=== PATIENT | female | born 1985 | race African-American/Black ===

== ENCOUNTER 2018-02-08 17:56 | Emergency (ER) | payer OTHER ==
[2018-02-08 18:06] VITALS: BP 129/88; PULSE 92; TEMP 98.2; BMI 22.8
--- NOTE | 2018-02-08 18:37 | PDOC ---
History of Present Illness - General Chief Complaint: Pain, Acute Stated Complaint: CHEST PAIN Time Seen by Provider: 02/08/18 18:08 History Source: Patient Exam Limitations: No Limitations Past History - Travel Traveled outside of the country in the last 30 days: No - Past Medical History Allergies/Adverse Reactions: Allergies Allergy/AdvReac Type Severity Reaction Status Date / Time No Known Allergies Allergy Verified 02/08/18 18:01 Home Medications: Ambulatory Orders Quetiapine Fumarate [Seroquel -] 50 mg PO HS 02/08/18 COPD: No Other medical history: SICKLE CELL - Immunization History Immunization Up to Date: Yes - Suicide/Smoking/Psychosocial Hx Smoking History: Current every day smoker Number of Cigarettes Smoked Daily: 6 Information on smoking cessation initiated: No Hx Alcohol Use: No Drug/Substance Use Hx: No *Physical Exam - Vital Signs Last Vital Signs Temp Pulse Resp BP Pulse Ox 98.2 F 92 H 18 129/88 100 02/08/18 18:02 02/08/18 18:02 02/08/18 18:02 02/08/18 18:02 02/08/18 18:02 - Physical Exam General Appearance: No: Apparent Distress Respiratory/Chest: positive: Chest Tender (+TTP along R chest wall), Lungs Clear , Normal Breath Sounds. negative: Respiratory Distress Cardiovascular: positive: Regular Rhythm, Regular Rate, S1, S2. negative: Murmur Gastrointestinal/Abdominal: positive: Normal Bowel Sounds, Soft. negative: Tender, Distended, Guarding, Rebound Extremity: negative: Swelling, Calf Tenderness Integumentary: positive: Normal Color Neurologic: positive: Alert Moderate Sedation - Procedure Monitoring Vital Signs: Procedure Monitoring Vital Signs Temperature 98.2 F 02/08/18 18:02 Pulse Rate 92 H 02/08/18 18:02 Respiratory Rate 18 02/08/18 18:02 Blood Pressure 129/88 02/08/18 18:02 O2 Sat by Pulse Oximetry (%) 100 02/08/18 18:02 ED Treatment Course - RADIOLOGY Radiology Studies Ordered: Category Date Time Status CHEST PA & LAT [RAD] Stat Radiology 02/08/18 18:23 Completed - Medications Given in the ED: ED Medications Discontinued Medications Generic Name Dose Route Start Last Admin Trade Name Freq PRN Reason Stop Dose Admin Ibuprofen 600 mg 02/08/18 18:43 02/08/18 18:44 Motrin - PO 02/08/18 18:44 600 mg ONCE ONE Administration Medical Decision Making - Medical Decision Making 32 y/o F hx of sickle cell presents with constant R sided chest pain since 5 days ago that is worse with inspiration, coughing, sneezing or movement of her body. Has tried Advil, Tums and Zyrtec for her symptoms of which only Advil helped a little. Denies fever, URI sxs, cough, sob, abd pain, n/v. Denies recent travel, use of OCPs. Is smoker (smokes 10 cigs/day). Denies drug use. Unsure of her family history. Likely costochondritis Not suspicious for ACS; only cardiac risk factor is smoking (also given history and PE, not suspicious) PERC negative so unlikely PE Also not suspicious for acute chest syndrome given afebrile and lungs clear; vitals stable Plan: CXR, Motrin 02/08/18 18:34 CXR raises suspicion for possible small subtle R basilar focus - possible subtle infiltrate However, patient with no signs/sxs of PNA (afebrile with no cough) Will refer for f/u with PCP as does not have one yet for repeat CXR Advised to return if having sxs concerning for PNA Stable for dc 02/08/18 19:04 *DC/Admit/Observation/Transfer Diagnosis at time of Disposition: Costochondritis - Discharge Dispostion Disposition: HOME Condition at time of disposition: Stable Decision to Admit order: No - Referrals Referrals: Doyle Shahid MD [Staff Physician] - 2 Days - Patient Instructions Printed Discharge Instructions: DI for Costochondritis Additional Instructions: Thank you for choosing [facility]. It was a pleasure taking care of you. You may take Motrin 600 mg every 4 hours by mouth as needed for mild to moderate pain. Take Motrin with food. Applying warm compresses may also help. Follow-up with PCP in 3 days Advise repeat CXR in 6 weeks Return to the Emergency Department if your symptoms worsen or persist, you have fever, productive cough, shortness of breath, worsening chest pain, vomiting or other concerning symptoms. - Post Discharge Activity
[2018-02-08] MEDS ORDERED: IBUPROFEN 600 MG TABLET (FP) PO ONE ×2 (18:43→18:44)
== END 2018-02-08 19:11 | disposition home or self-care (01) ==
LOC: JERFT 17:56
DX: M94.0 Chondrocostal junction syndrome [Tietze] (principal); D57.1 Sickle-cell disease without crisis
CPT/HCPCS: 71046-TC-FY; 99281-25